=== PATIENT | male | born 1945 | race Caucasian/White ===

== ENCOUNTER 2021-02-18 20:30 | Inpatient (IN) | payer OTHER ==
[2021-02-18] MEDS ORDERED: Dextrose 50% Abboject 50 ML SYRINGE IVP PRN (21:45)
[2021-02-18] MEDS ORDERED: HumaLOG 300 UNITS/3 ML VIAL SC PRN (21:45)
[2021-02-18] MEDS ORDERED: Dextrose 5% in Water 1,000 ML IV PRN ×2 (21:45→23:13)
[2021-02-18 21:55] VITALS: BMI 22.7
[2021-02-18] MEDS ORDERED: Acetaminophen 650 MG Suppository PR PRN (23:03)
[2021-02-18] MEDS ORDERED: Acetaminophen 325 MG TAB PO PRN (23:03)
[2021-02-18] MEDS ORDERED: Ondansetron ODT 4 MG TAB PO PRN (23:03)
[2021-02-18] MEDS ORDERED: Ondansetron PF 4 MG/2 ML Vial IVP PRN (23:03)
[2021-02-18] MEDS ORDERED: Cefepime 2 GM in Sodium Chloride 0.9% 100 ML IVPB SCH (23:06)
[2021-02-18] MEDS ORDERED: Doxycycline 100 MG in Syringe 0 ML IVPB SCH (23:12)
[2021-02-18] MEDS ORDERED: Dextrose 50% Abboject 50 ML SYRINGE SLOW IVP PRN (23:13)
[2021-02-18] MEDS ORDERED: methylPREDNISolone Sod Succ 40 MG VIAL IVP SCH (23:30)
[2021-02-19 00:57] LABS: Anion Gap 14 mmol/L (10-20); BUN (Urea Nitrogen) 20 mg/dL (8.4-25.7); Calc. Creatinine Clearance 71 mL/min (70-130); Calcium 9.2 mg/dL (7.8-10.44); Carbon Dioxide 30 mmol/L (23-31); Chloride 89 mmol/L (98-107); Glucose 143 mg/dL (83-110); Potassium 5.5 mmol/L (3.5-5.1); Sodium 127 mmol/L (136-145)
[2021-02-19 01:03] LABS: Troponin I Less than 0.010 ng/mL (< 0.028)
[2021-02-19 01:20] LABS: Hemoglobin 11.5 g/dL (14.0-18.0); Mean Corpuscular HGB CONC 34.5 g/dL (32.0-36.0); Mean Corpuscular Hemoglobin 32.5 pg (27.0-31.0); Mean Corpuscular Volume 94.3 fL (78.0-98.0); Mean Platelet Volume 7.1 fL (7.4-10.4); Platelet Count 421 thou/uL (130-400); RBC Distribution Width 12.8 % (11.5-14.5); Red Blood Cell (RBC) Count 3.54 mill/uL (4.70-6.10); White Blood Cell (WBC) Count 11.5 thou/uL (4.8-10.8)
[2021-02-19 01:32] LABS: Band 2 % (5-11); Lymphocytes 4 % (21-51); MDiff Complete? YES; Monocytes 6 % (0-10); Neutrophil 88 % (42-75)
[2021-02-19 05:09] LABS: #Lymphocytes 0.4 thou/uL (1.20-3.40); #Monocytes 0.8 thou/uL (0.11-0.59); #Neutrophils 10.3 thou/uL (1.40-6.50); %Eosinophils 0.2 % (0.0-10.0); %Lymphocytes 3.4 % (21.0-51.0); %Neutrophils 89.4 % (42.0-75.0); Hemoglobin 11.7 g/dL (14.0-18.0); Mean Corpuscular HGB CONC 33.9 g/dL (32.0-36.0); Mean Corpuscular Volume 94.4 fL (78.0-98.0); Platelet Count 528 thou/uL (130-400); RBC Distribution Width 12.8 % (11.5-14.5); Red Blood Cell (RBC) Count 3.66 mill/uL (4.70-6.10); White Blood Cell (WBC) Count 11.5 thou/uL (4.8-10.8)
[2021-02-19 05:29] LABS: Anion Gap 15 mmol/L (10-20); BUN (Urea Nitrogen) 18 mg/dL (8.4-25.7); Calc. Creatinine Clearance 72 mL/min (70-130); Calcium 9.7 mg/dL (7.8-10.44); Carbon Dioxide 27 mmol/L (23-31); Chloride 89 mmol/L (98-107); Glucose 210 mg/dL (83-110); Potassium 5.6 mmol/L (3.5-5.1); Sodium 125 mmol/L (136-145)
[2021-02-19] MEDS ORDERED: Furosemide 20 MG/2 ML VIAL SLOW IVP SCH (06:00)
[2021-02-19] MEDS: HumaLOG 300 UNITS/3 ML VIAL SC PRN ×3 (06:10→17:36)
[2021-02-19] MEDS: Mometasone 100 MCG/Formoterol 5 MCG 120 PUFF INHALER INH SCH ×2 (07:16→18:57)
[2021-02-19] MEDS: Apixaban 5 MG TAB PO SCH ×2 (08:22→21:24)
[2021-02-19] MEDS: Polyethylene Glycol 3350 17 GM Packet PO SCH (08:22)
[2021-02-19] MEDS: methylPREDNISolone Sod Succ 40 MG VIAL IVP SCH (08:22)
[2021-02-19] MEDS: Docusate 100 MG CAP PO SCH (08:22)
[2021-02-19] MEDS: Sotalol HCl 80 MG TAB PO SCH ×2 (08:22→21:24)
[2021-02-19] MEDS ORDERED: Senokot 8.6 MG TAB PO PRN (08:59)
[2021-02-19] MEDS ORDERED: Enoxaparin Sodium 40 MG/0.4 ML SYRINGE SC SCH (09:00)
[2021-02-19] MEDS ORDERED: Amlodipine 5 MG TAB PO SCH (09:00)
[2021-02-19] MEDS: Clopidogrel Bisulfate 75 MG TAB PO SCH (09:28)
[2021-02-19 11:42] LABS: SARS-CoV-2 PCR by NAA Not Detected (NotDetected)
[2021-02-19 15:29] LABS: Base Excess 5.4 mEq/L (-2.0 to +3.0); Calcium, Ionized (venous) 1.14 mmol/L (1.16-1.32); Chloride (VBG) 84 mmol/L (98-106); Hemoglobin (Hb) 12.9 g/dL (12.6-17.4); Potassium (VBG) 5.12 mmol/L (3.70-5.30); Sodium 122.7 mmol/L (133-146); pH (venous) 7.31 (7.32-7.43)
[2021-02-19 15:30] LABS: Actual Bicarbonate (HCO3v) 34 mEq/L (22-28)
[2021-02-19 15:53] LABS: Anion Gap 15 mmol/L (10-20); BUN (Urea Nitrogen) 23 mg/dL (8.4-25.7); Calc. Creatinine Clearance 55 mL/min (70-130); Calcium 9.6 mg/dL (7.8-10.44); Carbon Dioxide 31 mmol/L (23-31); Chloride 84 mmol/L (98-107); Glucose 300 mg/dL (83-110); Potassium 5.2 mmol/L (3.5-5.1); Sodium 125 mmol/L (136-145)
[2021-02-19] MEDS ORDERED: Doxycycline 100 MG in Syringe 0 ML IVPB SCH (18:00)
[2021-02-19] MEDS: Cefepime 2 GM in Sodium Chloride 0.9% 100 ML IVPB SCH (18:46)
[2021-02-19] MEDS: Ezetimibe 10 MG TAB PO SCH (21:24)
[2021-02-20 05:43] LABS: #Lymphocytes 0.5 thou/uL (1.20-3.40); #Monocytes 1.3 thou/uL (0.11-0.59); #Neutrophils 7.7 thou/uL (1.40-6.50); %Basophils 0.5 % (0.0-1.0); %Eosinophils 0.2 % (0.0-10.0); %Monocytes 13.6 % (0.0-10.0); %Neutrophils 80.8 % (42.0-75.0); Hemoglobin 11.5 g/dL (14.0-18.0); Mean Platelet Volume 6.9 fL (7.4-10.4); Platelet Count 568 thou/uL (130-400); RBC Distribution Width 12.6 % (11.5-14.5); White Blood Cell (WBC) Count 9.5 thou/uL (4.8-10.8)
[2021-02-20] MEDS: Cefepime 2 GM in Sodium Chloride 0.9% 100 ML IVPB SCH ×2 (06:17→18:13)
[2021-02-20] MEDS: HumaLOG 300 UNITS/3 ML VIAL SC PRN ×3 (06:18→21:14)
[2021-02-20] MEDS: Mometasone 100 MCG/Formoterol 5 MCG 120 PUFF INHALER INH SCH ×2 (06:25→19:23)
[2021-02-20 06:41] LABS: Anion Gap 16 mmol/L (10-20); BUN (Urea Nitrogen) 20 mg/dL (8.4-25.7); Calc. Creatinine Clearance 66 mL/min (70-130); Calcium 9.1 mg/dL (7.8-10.44); Carbon Dioxide 29 mmol/L (23-31); Chloride 88 mmol/L (98-107); Glucose 268 mg/dL (83-110); Potassium 5.5 mmol/L (3.5-5.1); Sodium 127 mmol/L (136-145)
[2021-02-20] MEDS ORDERED: Sodium Chloride 0.9% 1,000 ML IV SCH (08:30)
[2021-02-20 08:58] LABS: Base Excess 6.3 mEq/L (-2.0 to +3.0); Calcium, Ionized (venous) 1.14 mmol/L (1.16-1.32); Chloride (VBG) 89 mmol/L (98-106); Hemoglobin (Hb) 12.4 g/dL (12.6-17.4); Potassium (VBG) 5.43 mmol/L (3.70-5.30); Sodium 124.7 mmol/L (133-146); pH (venous) 7.38 (7.32-7.43)
[2021-02-20 08:59] LABS: Actual Bicarbonate (HCO3v) 33 mEq/L (22-28)
[2021-02-20] MEDS: Amlodipine 5 MG TAB PO SCH (10:34)
[2021-02-20] MEDS: methylPREDNISolone Sod Succ 40 MG VIAL IVP SCH (10:34)
[2021-02-20] MEDS: Apixaban 5 MG TAB PO SCH ×2 (10:35→21:17)
[2021-02-20] MEDS: Clopidogrel Bisulfate 75 MG TAB PO SCH (10:35)
[2021-02-20] MEDS: Sotalol HCl 80 MG TAB PO SCH ×2 (10:35→21:17)
[2021-02-20] MEDS: Docusate 100 MG CAP PO SCH (10:35)
[2021-02-20] MEDS: Polyethylene Glycol 3350 17 GM Packet PO SCH (10:36)
[2021-02-20] MEDS: NPH, Human Insulin Isophane 300 UNIT/3 ML VIAL SC SCH (10:43)
[2021-02-20 11:20] LABS: Magnesium 1.7 mg/dL (1.6-2.6); Phosphorus 4.2 mg/dL (2.3-4.7)
[2021-02-20] MEDS ORDERED: Magnesium 2 GM/50 ML 2 GM in Premix Bag 1 BAG IVPB SCH (14:00)
[2021-02-20] MEDS ORDERED: Sodium Chloride 1 GM TAB PO SCH (21:00)
[2021-02-20] MEDS: Multivit, Therapeutic 1 TAB PO SCH (21:15)
[2021-02-20] MEDS: Ezetimibe 10 MG TAB PO SCH (21:15)
[2021-02-20] MEDS: busPIRone HCl 10 MG TAB PO SCH (21:16)
[2021-02-20] MEDS: Cholecalciferol 1,000 UNITS (25 MCG) TAB PO SCH (21:17)
[2021-02-20] MEDS: Sodium Chloride 1 GM TAB PO SCH (21:29)
[2021-02-21 05:42] LABS: Anion Gap 11 mmol/L (10-20); BUN (Urea Nitrogen) 19 mg/dL (8.4-25.7); Calc. Creatinine Clearance 71 mL/min (70-130); Calcium 8.8 mg/dL (7.8-10.44); Carbon Dioxide 33 mmol/L (23-31); Chloride 88 mmol/L (98-107); Glucose 285 mg/dL (83-110); Magnesium 1.8 mg/dL (1.6-2.6); Potassium 4.7 mmol/L (3.5-5.1); Sodium 127 mmol/L (136-145)
[2021-02-21 05:43] LABS: Phosphorus 3.4 mg/dL (2.3-4.7)
[2021-02-21] MEDS: Cefepime 2 GM in Sodium Chloride 0.9% 100 ML IVPB SCH ×2 (05:45→18:39)
[2021-02-21 05:49] LABS: Hemoglobin 11.5 g/dL (14.0-18.0); Lymphocytes 6 % (21-51); MDiff Complete? YES; Mean Corpuscular HGB CONC 33.8 g/dL (32.0-36.0); Mean Corpuscular Hemoglobin 31.7 pg (27.0-31.0); Mean Corpuscular Volume 93.9 fL (78.0-98.0); Mean Platelet Volume 6.6 fL (7.4-10.4); Monocytes 13 % (0-10); Neutrophil 81 % (42-75); Platelet Count 585 thou/uL (130-400); Platelet Morphology Comment Appears Increased; RBC Distribution Width 12.4 % (11.5-14.5); Red Blood Cell (RBC) Count 3.63 mill/uL (4.70-6.10); White Blood Cell (WBC) Count 7.7 thou/uL (4.8-10.8)
[2021-02-21] MEDS: HumaLOG 300 UNITS/3 ML VIAL SC PRN (06:35)
[2021-02-21] MEDS: Mometasone 100 MCG/Formoterol 5 MCG 120 PUFF INHALER INH SCH ×2 (07:58→18:55)
[2021-02-21] MEDS: Amlodipine 5 MG TAB PO SCH (10:46)
[2021-02-21] MEDS: Apixaban 5 MG TAB PO SCH ×2 (10:47→21:29)
[2021-02-21] MEDS: busPIRone HCl 10 MG TAB PO SCH ×2 (10:47→21:29)
[2021-02-21] MEDS: Docusate 100 MG CAP PO SCH (10:48)
[2021-02-21] MEDS: Cyanocobalamin (Vitamin B-12) 1,000 MCG TAB PO SCH (10:48)
[2021-02-21] MEDS: Folic Acid 1 MG TAB PO SCH (10:48)
[2021-02-21] MEDS: Clopidogrel Bisulfate 75 MG TAB PO SCH (10:50)
[2021-02-21] MEDS: Sotalol HCl 80 MG TAB PO SCH ×2 (10:50→21:27)
[2021-02-21] MEDS: Sodium Chloride 1 GM TAB PO SCH ×3 (10:51→21:28)
[2021-02-21] MEDS: Polyethylene Glycol 3350 17 GM Packet PO SCH ×2 (10:51→21:31)
[2021-02-21] MEDS ORDERED: NPH, Human Insulin Isophane 300 UNIT/3 ML VIAL SC SCH (17:00)
[2021-02-21] MEDS: NPH, Human Insulin Isophane 300 UNIT/3 ML VIAL SC SCH (17:43)
[2021-02-21] MEDS: Senokot S 8.6-50 MG TAB PO SCH (21:27)
[2021-02-21] MEDS: Ezetimibe 10 MG TAB PO SCH (21:28)
[2021-02-21] MEDS: Cholecalciferol 1,000 UNITS (25 MCG) TAB PO SCH (21:29)
[2021-02-21] MEDS: Multivit, Therapeutic 1 TAB PO SCH (21:29)
[2021-02-21 23:13] LABS: Mycoplasma pneumoniae IgG AB 444 U/mL (0-99); Mycoplasma pneumoniae IgM AB Less than 770 U/mL (0-769)
[2021-02-21 23:37] LABS: L.pneumophilia Abs <0.91 OD ratio (0.00-0.90)
[2021-02-22 05:48] LABS: Anion Gap 11 mmol/L (10-20); BUN (Urea Nitrogen) 16 mg/dL (8.4-25.7); Calc. Creatinine Clearance 69 mL/min (70-130); Calcium 8.9 mg/dL (7.8-10.44); Carbon Dioxide 33 mmol/L (23-31); Chloride 91 mmol/L (98-107); Glucose 95 mg/dL (83-110); Potassium 4.1 mmol/L (3.5-5.1); Sodium 131 mmol/L (136-145)
[2021-02-22] MEDS: Cefepime 2 GM in Sodium Chloride 0.9% 100 ML IVPB SCH ×2 (05:53→18:46)
[2021-02-22 06:23] LABS: Eosinophils 1 % (0-10); Hemoglobin 12.6 g/dL (14.0-18.0); Lymphocytes 10 % (21-51); MDiff Complete? YES; Mean Corpuscular HGB CONC 32.9 g/dL (32.0-36.0); Mean Corpuscular Hemoglobin 31.2 pg (27.0-31.0); Mean Corpuscular Volume 94.9 fL (78.0-98.0); Mean Platelet Volume 6.6 fL (7.4-10.4); Monocytes 26 % (0-10); Neutrophil 63 % (42-75); Platelet Count 632 thou/uL (130-400); Platelet Morphology Comment Appears Increased; RBC Distribution Width 12.7 % (11.5-14.5); RBC Morphology Normal; Red Blood Cell (RBC) Count 4.03 mill/uL (4.70-6.10); White Blood Cell (WBC) Count 8.4 thou/uL (4.8-10.8)
[2021-02-22] MEDS ORDERED: NPH, Human Insulin Isophane 300 UNIT/3 ML VIAL SC SCH ×2 (07:00→09:00)
[2021-02-22] MEDS: Mometasone 100 MCG/Formoterol 5 MCG 120 PUFF INHALER INH SCH ×2 (07:24→18:39)
[2021-02-22] MEDS: Senokot S 8.6-50 MG TAB PO SCH ×2 (09:19→20:35)
[2021-02-22] MEDS: Clopidogrel Bisulfate 75 MG TAB PO SCH (09:19)
[2021-02-22] MEDS: Folic Acid 1 MG TAB PO SCH (09:20)
[2021-02-22] MEDS: predniSONE 20 MG TAB PO SCH (09:20)
[2021-02-22] MEDS: Sotalol HCl 80 MG TAB PO SCH ×2 (09:20→20:37)
[2021-02-22] MEDS: Sodium Chloride 1 GM TAB PO SCH ×3 (09:20→20:37)
[2021-02-22] MEDS: busPIRone HCl 10 MG TAB PO SCH ×2 (09:20→20:36)
[2021-02-22] MEDS: Apixaban 5 MG TAB PO SCH ×2 (09:20→20:36)
[2021-02-22] MEDS: Amlodipine 5 MG TAB PO SCH (09:20)
[2021-02-22] MEDS: Cyanocobalamin (Vitamin B-12) 1,000 MCG TAB PO SCH (09:20)
[2021-02-22] MEDS: Polyethylene Glycol 3350 17 GM Packet PO SCH ×2 (09:24→20:35)
[2021-02-22] MEDS: HumaLOG 300 UNITS/3 ML VIAL SC PRN (17:24)
[2021-02-22] MEDS: Calcium Carbonate 600 MG + Vit D TAB PO SCH (17:24)
[2021-02-22] MEDS: Ezetimibe 10 MG TAB PO SCH (20:36)
[2021-02-22] MEDS: Cholecalciferol 1,000 UNITS (25 MCG) TAB PO SCH (20:36)
[2021-02-23 05:27] LABS: Anion Gap 11 mmol/L (10-20); BUN (Urea Nitrogen) 19 mg/dL (8.4-25.7); Calc. Creatinine Clearance 82 mL/min (70-130); Calcium 9.2 mg/dL (7.8-10.44); Carbon Dioxide 34 mmol/L (23-31); Chloride 93 mmol/L (98-107); Glucose 187 mg/dL (83-110); Potassium 4.5 mmol/L (3.5-5.1); Sodium 133 mmol/L (136-145)
[2021-02-23] MEDS: Mometasone 100 MCG/Formoterol 5 MCG 120 PUFF INHALER INH SCH ×2 (07:25→20:38)
[2021-02-23] MEDS: HumaLOG 300 UNITS/3 ML VIAL SC PRN ×3 (07:32→21:16)
[2021-02-23] MEDS: Cefepime 2 GM in Sodium Chloride 0.9% 100 ML IVPB SCH ×2 (07:33→18:26)
[2021-02-23] MEDS: Folic Acid 1 MG TAB PO SCH (08:49)
[2021-02-23] MEDS: Amlodipine 5 MG TAB PO SCH (08:49)
[2021-02-23] MEDS: Calcium Carbonate 600 MG + Vit D TAB PO SCH ×2 (08:49→17:09)
[2021-02-23] MEDS: predniSONE 20 MG TAB PO SCH (08:49)
[2021-02-23] MEDS: Senokot S 8.6-50 MG TAB PO SCH ×2 (08:49→21:05)
[2021-02-23] MEDS: Multivit, Therapeutic 1 TAB PO SCH (08:49)
[2021-02-23] MEDS: Apixaban 5 MG TAB PO SCH ×2 (08:49→21:03)
[2021-02-23] MEDS: Cyanocobalamin (Vitamin B-12) 1,000 MCG TAB PO SCH (08:49)
[2021-02-23] MEDS: Sodium Chloride 1 GM TAB PO SCH ×3 (08:49→21:12)
[2021-02-23] MEDS: Clopidogrel Bisulfate 75 MG TAB PO SCH (08:49)
[2021-02-23] MEDS: Sotalol HCl 80 MG TAB PO SCH ×2 (08:49→21:03)
[2021-02-23] MEDS: busPIRone HCl 10 MG TAB PO SCH ×2 (08:49→21:02)
[2021-02-23] MEDS: Polyethylene Glycol 3350 17 GM Packet PO SCH ×2 (08:50→21:04)
[2021-02-23] MEDS: Cholecalciferol 1,000 UNITS (25 MCG) TAB PO SCH (21:02)
[2021-02-23] MEDS: Ezetimibe 10 MG TAB PO SCH (21:02)
[2021-02-24] MEDS: HumaLOG 300 UNITS/3 ML VIAL SC PRN ×3 (06:01→21:41)
[2021-02-24] MEDS: Mometasone 100 MCG/Formoterol 5 MCG 120 PUFF INHALER INH SCH ×2 (06:31→18:57)
[2021-02-24] MEDS: Cefepime 2 GM in Sodium Chloride 0.9% 100 ML IVPB SCH ×2 (07:27→18:28)
[2021-02-24] MEDS: Calcium Carbonate 600 MG + Vit D TAB PO SCH ×2 (10:07→16:30)
[2021-02-24] MEDS: Multivit, Therapeutic 1 TAB PO SCH (10:07)
[2021-02-24] MEDS: Senokot S 8.6-50 MG TAB PO SCH ×2 (10:07→21:46)
[2021-02-24] MEDS: Sotalol HCl 80 MG TAB PO SCH ×2 (10:07→21:39)
[2021-02-24] MEDS: Cyanocobalamin (Vitamin B-12) 1,000 MCG TAB PO SCH (10:08)
[2021-02-24] MEDS: Clopidogrel Bisulfate 75 MG TAB PO SCH (10:08)
[2021-02-24] MEDS: busPIRone HCl 10 MG TAB PO SCH ×2 (10:09→21:38)
[2021-02-24] MEDS: Apixaban 5 MG TAB PO SCH ×2 (10:09→21:39)
[2021-02-24] MEDS: Amlodipine 5 MG TAB PO SCH (10:09)
[2021-02-24] MEDS: predniSONE 20 MG TAB PO SCH (10:10)
[2021-02-24] MEDS: Polyethylene Glycol 3350 17 GM Packet PO SCH ×2 (10:10→21:46)
[2021-02-24] MEDS: Sodium Chloride 1 GM TAB PO SCH ×3 (10:23→21:38)
[2021-02-24] MEDS: Folic Acid 1 MG TAB PO SCH (10:23)
[2021-02-24 10:45] LABS: Anion Gap 10 mmol/L (10-20); BUN (Urea Nitrogen) 20 mg/dL (8.4-25.7); Calc. Creatinine Clearance 82 mL/min (70-130); Calcium 9.3 mg/dL (7.8-10.44); Carbon Dioxide 34 mmol/L (23-31); Chloride 93 mmol/L (98-107); Glucose 135 mg/dL (83-110); Potassium 4.3 mmol/L (3.5-5.1); Sodium 133 mmol/L (136-145)
[2021-02-24] MEDS: Ezetimibe 10 MG TAB PO SCH (21:39)
[2021-02-24] MEDS: Atorvastatin Calcium 20 MG TAB PO SCH (21:39)
[2021-02-24] MEDS: Cholecalciferol 1,000 UNITS (25 MCG) TAB PO SCH (21:39)
[2021-02-25 05:24] LABS: Anion Gap 9 mmol/L (10-20); BUN (Urea Nitrogen) 18 mg/dL (8.4-25.7); Calc. Creatinine Clearance 82 mL/min (70-130); Calcium 9.2 mg/dL (7.8-10.44); Carbon Dioxide 33 mmol/L (23-31); Chloride 95 mmol/L (98-107); Glucose 203 mg/dL (83-110); Potassium 4.5 mmol/L (3.5-5.1); Sodium 132 mmol/L (136-145)
[2021-02-25] MEDS: HumaLOG 300 UNITS/3 ML VIAL SC PRN ×3 (06:25→18:34)
[2021-02-25] MEDS: Cefepime 2 GM in Sodium Chloride 0.9% 100 ML IVPB SCH (06:27)
[2021-02-25] MEDS: Mometasone 100 MCG/Formoterol 5 MCG 120 PUFF INHALER INH SCH ×2 (06:29→19:28)
[2021-02-25] MEDS: Senokot S 8.6-50 MG TAB PO SCH ×2 (09:21→21:32)
[2021-02-25] MEDS: Calcium Carbonate 600 MG + Vit D TAB PO SCH ×2 (09:22→16:08)
[2021-02-25] MEDS: busPIRone HCl 10 MG TAB PO SCH ×2 (09:22→20:40)
[2021-02-25] MEDS: Multivit, Therapeutic 1 TAB PO SCH (09:22)
[2021-02-25] MEDS: Amlodipine 5 MG TAB PO SCH (09:22)
[2021-02-25] MEDS: predniSONE 20 MG TAB PO SCH (09:23)
[2021-02-25] MEDS: Folic Acid 1 MG TAB PO SCH (09:23)
[2021-02-25] MEDS: Clopidogrel Bisulfate 75 MG TAB PO SCH (09:23)
[2021-02-25] MEDS: Apixaban 5 MG TAB PO SCH ×2 (09:23→20:41)
[2021-02-25] MEDS: Sotalol HCl 80 MG TAB PO SCH ×2 (09:23→20:39)
[2021-02-25] MEDS: Polyethylene Glycol 3350 17 GM Packet PO SCH ×2 (09:24→21:32)
[2021-02-25] MEDS: Cyanocobalamin (Vitamin B-12) 1,000 MCG TAB PO SCH (09:28)
[2021-02-25] MEDS: Sodium Chloride 1 GM TAB PO SCH ×2 (09:39→21:32)
[2021-02-25] MEDS: Atorvastatin Calcium 20 MG TAB PO SCH (20:40)
[2021-02-25] MEDS: Cholecalciferol 1,000 UNITS (25 MCG) TAB PO SCH (20:40)
[2021-02-25] MEDS: Ezetimibe 10 MG TAB PO SCH (20:40)
[2021-02-26] MEDS: Mometasone 100 MCG/Formoterol 5 MCG 120 PUFF INHALER INH SCH (07:08)
[2021-02-26] MEDS ORDERED: predniSONE 20 MG TAB PO SCH (08:00)
[2021-02-26 08:11] LABS: Anion Gap 8 mmol/L (10-20); BUN (Urea Nitrogen) 14 mg/dL (8.4-25.7); Calc. Creatinine Clearance 88 mL/min (70-130); Calcium 9.3 mg/dL (7.8-10.44); Carbon Dioxide 35 mmol/L (23-31); Chloride 92 mmol/L (98-107); Glucose 157 mg/dL (83-110); Potassium 4.4 mmol/L (3.5-5.1); Sodium 131 mmol/L (136-145)
[2021-02-26] MEDS: Polyethylene Glycol 3350 17 GM Packet PO SCH (08:34)
[2021-02-26] MEDS: Sodium Chloride 1 GM TAB PO SCH (08:34)
[2021-02-26] MEDS: Cyanocobalamin (Vitamin B-12) 1,000 MCG TAB PO SCH (08:34)
[2021-02-26] MEDS: Senokot S 8.6-50 MG TAB PO SCH (08:34)
[2021-02-26] MEDS: busPIRone HCl 10 MG TAB PO SCH (08:35)
[2021-02-26] MEDS: Folic Acid 1 MG TAB PO SCH (08:35)
[2021-02-26] MEDS: Multivit, Therapeutic 1 TAB PO SCH (08:36)
[2021-02-26] MEDS: Sotalol HCl 80 MG TAB PO SCH (08:36)
[2021-02-26] MEDS: Clopidogrel Bisulfate 75 MG TAB PO SCH (08:36)
[2021-02-26] MEDS: Calcium Carbonate 600 MG + Vit D TAB PO SCH ×2 (08:36→16:48)
[2021-02-26] MEDS: Amlodipine 5 MG TAB PO SCH (08:36)
[2021-02-26] MEDS: Apixaban 5 MG TAB PO SCH (08:36)
[2021-02-26] MEDS ORDERED: Azithromycin 250 MG TAB PO SCH (09:00)
[2021-02-26] MEDS: HumaLOG 300 UNITS/3 ML VIAL SC PRN ×2 (12:05→16:48)
[2021-02-26 15:06] LABS: SARS-CoV-2 NAA Rapid Test Not Detected (NotDetected)
[2021-02-26] MEDS ORDERED: Sodium Chloride 1 GM TAB PO SCH ×2 (15:45→21:00)
[2021-02-26 16:19] VITALS: BP 137/81; TEMP 98.2
== END 2021-02-26 17:15 | DRG 193 ==
LOC: 2NO 21:23
PROVIDERS: ADMIT Internal Medicine; ATTEND Internal Medicine
DX: J18.9 Pneumonia, unspecified organism (principal); J96.21 Acute and chronic respiratory failure with hypoxia; J96.22 Acute and chronic respiratory failure with hypercapnia; J44.1 Chronic obstructive pulmonary disease with (acute) exacerbation; J44.0 Chronic obstructive pulmonary disease with (acute) lower respiratory infection; E44.0 Moderate protein-calorie malnutrition; E22.2 Syndrome of inappropriate secretion of antidiuretic hormone; Z66 Do not resuscitate; Z20.822 Contact with and (suspected) exposure to COVID-19; E78.5 Hyperlipidemia, unspecified; I25.10 Atherosclerotic heart disease of native coronary artery without angina pectoris; I48.0 Paroxysmal atrial fibrillation; D53.9 Nutritional anemia, unspecified; E11.9 Type 2 diabetes mellitus without complications; I11.0 Hypertensive heart disease with heart failure; E87.5 Hyperkalemia; Z88.0 Allergy status to penicillin; Z99.81 Dependence on supplemental oxygen; Z86.74 Personal history of sudden cardiac arrest; I25.2 Old myocardial infarction; Z68.22 Body mass index [BMI] 22.0-22.9, adult; Z79.51 Long term (current) use of inhaled steroids; Z79.899 Other long term (current) drug therapy; Z79.01 Long term (current) use of anticoagulants; E83.42 Hypomagnesemia
CPT/HCPCS: 36415; 36416; 71045; 74230; 80048; 82805; 83735; 83880; 83930; 83935; 84100; 84145; 84300; 84443; 84484; 85025; 86713; 87040; 87633; 94640; J0692; J1815; J1940; J2920; J3475; J3490; J7512; J7620; U0002; U0003; U0005

== ENCOUNTER 2021-03-24 09:31 | Inpatient (IN) | payer OTHER, MEDICARE ==
[2021-03-24 12:31] VITALS: BMI 24.3
[2021-03-24] MEDS ORDERED: Dextrose 50% Abboject 50 ML SYRINGE SLOW IVP PRN (12:52)
[2021-03-24] MEDS ORDERED: Dextrose 5% in Water 1,000 ML IV PRN (12:52)
[2021-03-24] MEDS ORDERED: Ondansetron PF 4 MG/2 ML Vial IVP PRN (12:53)
[2021-03-24] MEDS ORDERED: Promethazine HCl 25 MG/ML VIAL IM PRN (12:53)
[2021-03-24] MEDS ORDERED: Lorazepam 2 MG/ML VIAL SLOW IVP PRN (12:54)
[2021-03-24] MEDS ORDERED: hydrALAZINE 20 MG/ML VIAL SLOW IVP PRN (12:54)
[2021-03-24] MEDS ORDERED: Milk Of Magnesia 30 ML UDCUP PO PRN (12:56)
[2021-03-24] MEDS ORDERED: Benzonatate 100 MG CAP PO PRN (12:56)
[2021-03-24] MEDS ORDERED: Morphine 4 MG/ML VIAL SLOW IVP PRN (12:59)
[2021-03-24] MEDS ORDERED: Sodium Chloride 0.9% 1,000 ML IV SCH ×4 (13:15→15:09)
[2021-03-24 13:35] LABS: Hemoglobin 11.8 g/dL (14.0-18.0); Mean Corpuscular HGB CONC 33.8 g/dL (32.0-36.0); Mean Corpuscular Volume 94.6 fL (78.0-98.0); Mean Platelet Volume 6.6 fL (7.4-10.4); Platelet Count 373 thou/uL (130-400); RBC Distribution Width 13.5 % (11.5-14.5); Red Blood Cell (RBC) Count 3.67 mill/uL (4.70-6.10); White Blood Cell (WBC) Count 8.8 thou/uL (4.8-10.8)
[2021-03-24 13:45] LABS: INR-International Normal Ratio 1.4; PTT 41.8 sec (22.9-36.1); Prothrombin Time 17.5 sec (12.0-14.7)
[2021-03-24 13:51] LABS: Band 1 % (5-11); Eosinophils 1 % (0-10); Lymphocytes 5 % (21-51); MDiff Complete? YES; Monocytes 10 % (0-10); Myelocyte 1 % (0-0); Neutrophil 80 % (42-75); Ovalocytes SLIGHT = 2-5 cells (100X) (0-1/hpf); Platelet Morphology Comment Appears Adequate; Polychromasia SLIGHT = 2-3 cells (100X) (0-2/hpf); Reactive Lymphocytes 2 % (0-10)
[2021-03-24 13:58] LABS: Anion Gap 10 mmol/L (10-20); BUN (Urea Nitrogen) 11 mg/dL (8.4-25.7); Calc. Creatinine Clearance 86 mL/min (70-130); Calcium 9.2 mg/dL (7.8-10.44); Carbon Dioxide 32 mmol/L (23-31); Chloride 92 mmol/L (98-107); Glucose 177 mg/dL (83-110); Magnesium 1.8 mg/dL (1.6-2.6); Phosphorus 2.8 mg/dL (2.3-4.7); Potassium 5.7 mmol/L (3.5-5.1); Sodium 128 mmol/L (136-145)
[2021-03-24] MEDS ORDERED: Dextrose 50% Abboject 50 ML SYRINGE SLOW IVP STA (14:41)
[2021-03-24] MEDS ORDERED: Insulin Regular 300 UNITS/3 ML VIAL IVP STA (14:42)
[2021-03-24] MEDS ORDERED: busPIRone HCl 10 MG TAB PO STA (15:28)
[2021-03-24] MEDS: Mometasone 100 MCG/PUFF (1 INHALER) INH SCH (19:15)
[2021-03-24 20:56] LABS: Anion Gap 12 mmol/L (10-20); BUN (Urea Nitrogen) 10 mg/dL (8.4-25.7); Calc. Creatinine Clearance 88 mL/min (70-130); Calcium 8.7 mg/dL (7.8-10.44); Carbon Dioxide 29 mmol/L (23-31); Chloride 92 mmol/L (98-107); Glucose 205 mg/dL (83-110); Magnesium 1.6 mg/dL (1.6-2.6); Phosphorus 2.8 mg/dL (2.3-4.7); Potassium 4.3 mmol/L (3.5-5.1); Sodium 129 mmol/L (136-145)
[2021-03-24] MEDS ORDERED: busPIRone HCl 5 MG TAB PO SCH (21:00)
[2021-03-24] MEDS ORDERED: Sotalol HCl 80 MG TAB PO SCH (21:00)
[2021-03-24] MEDS: Magnesium Oxide 400 MG TAB PO SCH (21:51)
[2021-03-24] MEDS: Sotalol HCl 80 MG TAB PO SCH (21:51)
[2021-03-24] MEDS: Ezetimibe 10 MG TAB PO SCH (21:52)
[2021-03-24] MEDS: Amlodipine 5 MG TAB PO SCH (21:52)
[2021-03-24] MEDS: busPIRone HCl 5 MG TAB PO SCH (21:52)
[2021-03-24] MEDS: Famotidine/PF 20 mg/2ml Vial SLOW IVP SCH (21:52)
[2021-03-24] MEDS: Atorvastatin Calcium 20 MG TAB PO SCH (21:53)
[2021-03-25 06:14] LABS: Anion Gap 11 mmol/L (10-20); BUN (Urea Nitrogen) 8 mg/dL (8.4-25.7); Calc. Creatinine Clearance 90 mL/min (70-130); Calcium 8.6 mg/dL (7.8-10.44); Carbon Dioxide 34 mmol/L (23-31); Chloride 93 mmol/L (98-107); Glucose 154 mg/dL (83-110); Magnesium 1.5 mg/dL (1.6-2.6); Phosphorus 2.8 mg/dL (2.3-4.7); Potassium 4.6 mmol/L (3.5-5.1); Sodium 133 mmol/L (136-145)
[2021-03-25 06:20] LABS: Eosinophils 4 % (0-10); Hemoglobin 10.8 g/dL (14.0-18.0); Lymphocytes 7 % (21-51); MDiff Complete? YES; Mean Corpuscular HGB CONC 33.6 g/dL (32.0-36.0); Mean Corpuscular Hemoglobin 31.9 pg (27.0-31.0); Mean Corpuscular Volume 94.9 fL (78.0-98.0); Mean Platelet Volume 6.8 fL (7.4-10.4); Monocytes 23 % (0-10); Neutrophil 65 % (42-75); Platelet Count 340 thou/uL (130-400); Platelet Morphology Comment Appears Adequate; RBC Distribution Width 13.7 % (11.5-14.5); Reactive Lymphocytes 1 % (0-10); White Blood Cell (WBC) Count 9.1 thou/uL (4.8-10.8)
[2021-03-25] MEDS ORDERED: Magnesium Sulfate 4 GM in Sodium Chloride 0.9% 250 ML 250 ML IV SCH (06:45)
[2021-03-25] MEDS: Mometasone 100 MCG/PUFF (1 INHALER) INH SCH ×2 (07:37→19:26)
[2021-03-25] MEDS: Polyethylene Glycol 3350 17 GM Packet PO SCH (07:58)
[2021-03-25] MEDS: Amlodipine 5 MG TAB PO SCH ×2 (07:58→20:23)
[2021-03-25] MEDS: Magnesium Oxide 400 MG TAB PO SCH ×2 (07:58→20:23)
[2021-03-25] MEDS: Famotidine/PF 20 mg/2ml Vial SLOW IVP SCH ×2 (07:59→20:23)
[2021-03-25] MEDS: Docusate 100 MG CAP PO SCH (07:59)
[2021-03-25] MEDS: busPIRone HCl 5 MG TAB PO SCH ×3 (07:59→20:19)
[2021-03-25] MEDS: Sotalol HCl 80 MG TAB PO SCH ×2 (07:59→20:19)
[2021-03-25] MEDS: predniSONE 20 MG TAB PO SCH (08:00)
[2021-03-25] MEDS ORDERED: Clindamycin/D5W 900 MG in Premix Bag 1 BAG IVPB SCH (12:30)
[2021-03-25] MEDS: HumaLOG 300 UNITS/3 ML VIAL SC PRN ×3 (13:17→20:33)
[2021-03-25] MEDS: Atorvastatin Calcium 20 MG TAB PO SCH (20:23)
[2021-03-25] MEDS: Ezetimibe 10 MG TAB PO SCH (20:23)
[2021-03-26 06:12] LABS: Band 1 % (5-11); Hemoglobin 10.5 g/dL (14.0-18.0); Lymphocytes 8 % (21-51); MDiff Complete? YES; Mean Corpuscular HGB CONC 33.6 g/dL (32.0-36.0); Mean Platelet Volume 6.8 fL (7.4-10.4); Metamyelocyte 1 % (0-0); Monocytes 15 % (0-10); Neutrophil 73 % (42-75); Platelet Count 334 thou/uL (130-400); Platelet Morphology Comment Appears Adequate; RBC Distribution Width 13.6 % (11.5-14.5); Reactive Lymphocytes 2 % (0-10); Red Blood Cell (RBC) Count 3.29 mill/uL (4.70-6.10); White Blood Cell (WBC) Count 9.7 thou/uL (4.8-10.8)
[2021-03-26 06:21] LABS: Anion Gap 9 mmol/L (10-20); BUN (Urea Nitrogen) 14 mg/dL (8.4-25.7); Calc. Creatinine Clearance 76 mL/min (70-130); Calcium 8.7 mg/dL (7.8-10.44); Carbon Dioxide 35 mmol/L (23-31); Chloride 93 mmol/L (98-107); Glucose 200 mg/dL (83-110); Phosphorus 2.7 mg/dL (2.3-4.7); Potassium 4.4 mmol/L (3.5-5.1); Sodium 133 mmol/L (136-145)
[2021-03-26] MEDS: Mometasone 100 MCG/PUFF (1 INHALER) INH SCH ×2 (07:59→18:33)
[2021-03-26] MEDS ORDERED: traMADol HCl 50 MG TAB PO PRN (08:10)
[2021-03-26] MEDS ORDERED: Ibuprofen 600 MG TAB PO PRN (08:11)
[2021-03-26] MEDS ORDERED: PHOS-NAK 1 PKT PACK PO SCH ×2 (08:15→14:00)
[2021-03-26] MEDS: Famotidine/PF 20 mg/2ml Vial SLOW IVP SCH ×2 (08:24→21:38)
[2021-03-26] MEDS: Polyethylene Glycol 3350 17 GM Packet PO SCH (08:29)
[2021-03-26] MEDS ORDERED: Ibuprofen 100 MG/5 ML UDCUP PO PRN (09:02)
[2021-03-26] MEDS: busPIRone HCl 5 MG TAB PO SCH ×3 (09:03→21:36)
[2021-03-26] MEDS: Sotalol HCl 80 MG TAB PO SCH ×2 (09:03→21:35)
[2021-03-26] MEDS: predniSONE 20 MG TAB PO SCH (09:04)
[2021-03-26] MEDS: Amlodipine 5 MG TAB PO SCH ×2 (09:04→21:36)
[2021-03-26] MEDS: Magnesium Oxide 400 MG TAB PO SCH ×2 (09:04→21:36)
[2021-03-26] MEDS: Docusate 100 MG CAP PO SCH (09:05)
[2021-03-26] MEDS: Senokot S 8.6-50 MG TAB PO SCH ×2 (09:06→21:36)
[2021-03-26] MEDS: Acetaminophen 500 MG TAB PO SCH ×3 (10:20→21:37)
[2021-03-26] MEDS ORDERED: Clindamycin/D5W 900 mg/50 ml Premix Bag ONE (11:09)
[2021-03-26] MEDS ORDERED: Fentanyl 100 MCG/2 ML VIAL ONE (12:31)
[2021-03-26] MEDS ORDERED: HYDROmorphone 2 MG/ML VIAL ONE (12:31)
[2021-03-26] MEDS ORDERED: Ketamine 50 MG/ML (10ML VIAL) ONE (12:31)
[2021-03-26] MEDS ORDERED: Succinylcholine 200 MG/10 ml SYRINGE FS ONE (12:55)
[2021-03-26] MEDS ORDERED: Phenylephrine 10 MG/ML VIAL ONE (12:55)
[2021-03-26] MEDS ORDERED: Dexamethasone 20 MG/5 ML VIAL ONE (12:55)
[2021-03-26] MEDS ORDERED: Lidocaine 1% PF 5 ML VIAL ONE (12:55)
[2021-03-26] MEDS ORDERED: PROPOFOL 200 MG/20 ML VIAL ONE (12:55)
[2021-03-26] MEDS ORDERED: ePHEDrine 50 MG/ML VIAL ONE ×2 (12:55)
[2021-03-26] MEDS ORDERED: Ondansetron PF 4 MG/2 ML Vial ONE (12:55)
[2021-03-26] MEDS ORDERED: ePHEDrine Sulfate 50 MG/10 ML VIAL ONE ×2 (13:34→13:53)
[2021-03-26] MEDS ORDERED: Ondansetron HCl/PF 4 MG/2 ML Vial IVP PRN (14:17)
[2021-03-26] MEDS ORDERED: Promethazine HCl 25 MG/ML VIAL IM PRN (14:17)
[2021-03-26] MEDS ORDERED: Meperidine HCl/PF 25 MG/ML VIAL SLOW IVP PRN (14:17)
[2021-03-26] MEDS ORDERED: Promethazine HCl 25 MG/ML VIAL IVPB PRN (14:17)
[2021-03-26] MEDS ORDERED: HYDROmorphone 2 MG/ML VIAL SLOW IVP PRN (14:17)
[2021-03-26] MEDS: Ezetimibe 10 MG TAB PO SCH (21:36)
[2021-03-26] MEDS: Atorvastatin Calcium 20 MG TAB PO SCH (21:36)
[2021-03-26] MEDS: Clindamycin/D5W 600 MG in Premix Bag 1 BAG IVPB SCH (21:37)
[2021-03-26] MEDS: Insulin Regular 300 UNITS/3 ML VIAL SC PRN (21:40)
[2021-03-27] MEDS: Acetaminophen 500 MG TAB PO SCH ×4 (05:06→21:37)
[2021-03-27] MEDS: Clindamycin/D5W 600 MG in Premix Bag 1 BAG IVPB SCH (05:07)
[2021-03-27] MEDS: Insulin Regular 300 UNITS/3 ML VIAL SC PRN ×4 (05:35→21:37)
[2021-03-27] MEDS: Mometasone 100 MCG/PUFF (1 INHALER) INH SCH ×2 (06:44→18:50)
[2021-03-27 07:17] LABS: #Lymphocytes 0.6 thou/uL (1.20-3.40); #Monocytes 1.1 thou/uL (0.11-0.59); #Neutrophils 7.4 thou/uL (1.40-6.50); %Basophils 0.3 % (0.0-1.0); %Eosinophils 0.2 % (0.0-10.0); %Lymphocytes 6.1 % (21.0-51.0); %Monocytes 12.1 % (0.0-10.0); %Neutrophils 81.4 % (42.0-75.0); Hemoglobin 10.3 g/dL (14.0-18.0); Mean Corpuscular HGB CONC 34.1 g/dL (32.0-36.0); Mean Corpuscular Hemoglobin 32.2 pg (27.0-31.0); Mean Corpuscular Volume 94.4 fL (78.0-98.0); Mean Platelet Volume 7.2 fL (7.4-10.4); Platelet Count 340 thou/uL (130-400); RBC Distribution Width 13.4 % (11.5-14.5); White Blood Cell (WBC) Count 9.1 thou/uL (4.8-10.8)
[2021-03-27 07:22] LABS: Anion Gap 11 mmol/L (10-20); BUN (Urea Nitrogen) 12 mg/dL (8.4-25.7); Calc. Creatinine Clearance 85 mL/min (70-130); Carbon Dioxide 33 mmol/L (23-31); Chloride 93 mmol/L (98-107); Glucose 263 mg/dL (83-110); Magnesium 1.7 mg/dL (1.6-2.6); Phosphorus 3.4 mg/dL (2.3-4.7); Potassium 4.7 mmol/L (3.5-5.1); Sodium 132 mmol/L (136-145)
[2021-03-27] MEDS ORDERED: Magnesium 2 GM/50 ML 2 GM in Premix Bag 1 BAG IVPB SCH (08:00)
[2021-03-27] MEDS ORDERED: PHOS-NAK 1 PKT PACK PO SCH (08:00)
[2021-03-27] MEDS: predniSONE 20 MG TAB PO SCH (08:22)
[2021-03-27] MEDS: traMADol HCl 50 MG TAB PO PRN (08:24)
[2021-03-27] MEDS: Magnesium Oxide 400 MG TAB PO SCH ×2 (08:24→21:37)
[2021-03-27] MEDS: Sotalol HCl 80 MG TAB PO SCH ×2 (08:25→21:35)
[2021-03-27] MEDS: Amlodipine 5 MG TAB PO SCH ×2 (08:26→21:36)
[2021-03-27] MEDS: Senokot S 8.6-50 MG TAB PO SCH ×2 (08:27→21:36)
[2021-03-27] MEDS: busPIRone HCl 5 MG TAB PO SCH ×3 (08:28→21:36)
[2021-03-27] MEDS: Clopidogrel Bisulfate 75 MG TAB PO SCH (10:33)
[2021-03-27] MEDS: ALPRAZolam 0.25 MG TAB PO SCH ×4 (10:33→21:37)
[2021-03-27] MEDS: Polyethylene Glycol 3350 17 GM Packet PO SCH (10:34)
[2021-03-27] MEDS: Docusate 100 MG CAP PO SCH (10:39)
[2021-03-27] MEDS: Atorvastatin Calcium 20 MG TAB PO SCH (21:37)
[2021-03-27] MEDS: Ezetimibe 10 MG TAB PO SCH (21:37)
[2021-03-28] MEDS: Acetaminophen 500 MG TAB PO SCH ×3 (03:46→18:17)
[2021-03-28] MEDS: Insulin Regular 300 UNITS/3 ML VIAL SC PRN ×2 (05:53→18:16)
[2021-03-28 07:55] LABS: Hemoglobin 10.1 g/dL (14.0-18.0); Mean Corpuscular HGB CONC 32.8 g/dL (32.0-36.0); Mean Corpuscular Hemoglobin 31.4 pg (27.0-31.0); Mean Corpuscular Volume 95.7 fL (78.0-98.0); Mean Platelet Volume 7.2 fL (7.4-10.4); Platelet Count 375 thou/uL (130-400); RBC Distribution Width 13.8 % (11.5-14.5); White Blood Cell (WBC) Count 10.9 thou/uL (4.8-10.8)
[2021-03-28] MEDS: Mometasone 100 MCG/PUFF (1 INHALER) INH SCH ×2 (08:29→18:17)
[2021-03-28 08:38] LABS: Anion Gap 10 mmol/L (10-20); Calc. Creatinine Clearance 87 mL/min (70-130); Calcium 8.8 mg/dL (7.8-10.44); Carbon Dioxide 34 mmol/L (23-31); Chloride 91 mmol/L (98-107); Glucose 165 mg/dL (83-110); Phosphorus 2.9 mg/dL (2.3-4.7); Potassium 4.2 mmol/L (3.5-5.1); Sodium 131 mmol/L (136-145)
[2021-03-28 08:39] LABS: BUN (Urea Nitrogen) 17 mg/dL (8.4-25.7); Magnesium 1.8 mg/dL (1.6-2.6)
[2021-03-28] MEDS: Sotalol HCl 80 MG TAB PO SCH (08:55)
[2021-03-28] MEDS: Senokot S 8.6-50 MG TAB PO SCH (08:55)
[2021-03-28] MEDS: Amlodipine 5 MG TAB PO SCH (08:56)
[2021-03-28] MEDS: Clopidogrel Bisulfate 75 MG TAB PO SCH (08:56)
[2021-03-28] MEDS: busPIRone HCl 5 MG TAB PO SCH ×2 (08:56→16:41)
[2021-03-28] MEDS: ALPRAZolam 0.25 MG TAB PO SCH ×3 (08:56→17:13)
[2021-03-28] MEDS: predniSONE 20 MG TAB PO SCH (08:57)
[2021-03-28] MEDS: Magnesium Oxide 400 MG TAB PO SCH (08:57)
[2021-03-28] MEDS ORDERED: Apixaban 5 MG TAB PO SCH (09:00)
[2021-03-28] MEDS: Polyethylene Glycol 3350 17 GM Packet PO SCH (09:02)
[2021-03-28] MEDS: Docusate 100 MG CAP PO SCH (09:08)
[2021-03-28 09:17] LABS: Band 2 % (5-11); Lymphocytes 9 % (21-51); MDiff Complete? YES; Monocytes 14 % (0-10); Myelocyte 1 % (0-0); Neutrophil 69 % (42-75); Nucleated RBC 1 % (0); Ovalocytes SLIGHT = 2-5 cells (100X) (0-1/hpf); Platelet Morphology Comment Appears Adequate; Polychromasia SLIGHT = 2-3 cells (100X) (0-2/hpf); Reactive Lymphocytes 5 % (0-10)
[2021-03-28] MEDS ORDERED: Magnesium 2 GM/50 ML 2 GM in Premix Bag 1 BAG IVPB SCH (09:45)
[2021-03-28] MEDS ORDERED: Sodium Phosphate 15 MMOL in Sodium Chloride 0.9% 250 ML 250 ML IVPB SCH (10:00)
[2021-03-28] MEDS: traMADol HCl 50 MG TAB PO PRN (11:06)
[2021-03-28 12:10] VITALS: TEMP 97.7
[2021-03-28] MEDS ORDERED: Sodium Chloride 0.9% 500 ML IV SCH (15:15)
[2021-03-28 19:44] VITALS: BP 96/50
[2021-03-29] MEDS ORDERED: predniSONE 5 MG TAB PO SCH (09:00)
== END 2021-03-28 20:45 | DRG 481 ==
LOC: SURG B 12:12
PROVIDERS: ADMIT Surgery; ATTEND Surgery
PROC: 0QS734Z Reposition Left Upper Femur with Internal Fixation Device, Percutaneous Approach (ICD-10-PCS; principal; 2021-03-26)
DX: S72.142A Displaced intertrochanteric fracture of left femur, initial encounter for closed fracture (principal); E87.1 Hypo-osmolality and hyponatremia; I13.0 Hypertensive heart and chronic kidney disease with heart failure and stage 1 through stage 4 chronic kidney disease, or unspecified chronic kidney disease; G20 Parkinson's disease; J44.9 Chronic obstructive pulmonary disease, unspecified; I50.9 Heart failure, unspecified; I48.91 Unspecified atrial fibrillation; E78.5 Hyperlipidemia, unspecified; W19.XXXA Unspecified fall, initial encounter; E11.22 Type 2 diabetes mellitus with diabetic chronic kidney disease; Y92.231 Patient bathroom in hospital as the place of occurrence of the external cause; Z20.822 Contact with and (suspected) exposure to COVID-19; E11.65 Type 2 diabetes mellitus with hyperglycemia; N18.2 Chronic kidney disease, stage 2 (mild); Z95.5 Presence of coronary angioplasty implant and graft; Z88.0 Allergy status to penicillin; Z87.891 Personal history of nicotine dependence; I25.2 Old myocardial infarction
CPT/HCPCS: 36415; 36416; 71045; 76000; 80048; 83735; 84100; 85025; 85610; 85730; 86850; 86900; 86901; 93005; 93010; 93306; 94640; C1713; J1100; J1170; J1815; J2060; J2370; J2405; J2704; J3010; J3475; J3490; J7030; J7050; J7512; J7620; S0028

== ENCOUNTER 2021-04-02 16:04 | Inpatient (IN) | payer MEDICARE ==
[2021-04-02 16:46] LABS: #Basophils 0.1 thou/uL (0.0-0.2); #Eosinphils 0.1 thou/uL (0.0-0.7); #Lymphocytes 0.9 thou/uL (1.20-3.40); #Monocytes 1.2 thou/uL (0.11-0.59); %Basophils 0.6 % (0.0-1.0); %Eosinophils 0.9 % (0.0-10.0); %Lymphocytes 8.4 % (21.0-51.0); %Monocytes 11.5 % (0.0-10.0); %Neutrophils 78.6 % (42.0-75.0); Hemoglobin 10.4 g/dL (14.0-18.0); Mean Corpuscular HGB CONC 33.5 g/dL (32.0-36.0); Mean Corpuscular Hemoglobin 32.5 pg (27.0-31.0); Mean Corpuscular Volume 96.8 fL (78.0-98.0); Mean Platelet Volume 6.6 fL (7.4-10.4); Platelet Count 393 thou/uL (130-400); RBC Distribution Width 15.8 % (11.5-14.5); Red Blood Cell (RBC) Count 3.19 mill/uL (4.70-6.10); White Blood Cell (WBC) Count 10.2 thou/uL (4.8-10.8)
[2021-04-02 16:53] LABS: ALT (SGPT) 12 U/L (8-55); AST (SGOT) 13 U/L (5-34); Albumin 2.9 g/dL (3.4-4.8); Alkaline Phosphatase 71 U/L (40-110); Anion Gap 12 mmol/L (10-20); BUN (Urea Nitrogen) 18 mg/dL (8.4-25.7); Bilirubin, Total 0.6 mg/dL (0.2-1.2); Calc. Creatinine Clearance 0 mL/min (70-130); Calcium 8.4 mg/dL (7.8-10.44); Carbon Dioxide 28 mmol/L (23-31); Chloride 96 mmol/L (98-107); Globulin 2.1 g/dL (2.4-3.5); Glucose 183 mg/dL (83-110); Potassium 4.7 mmol/L (3.5-5.1); Sodium 131 mmol/L (136-145)
[2021-04-02] MEDS ORDERED: cefTRIAXone\\ROCEPHIN 2 GM VIAL ONE (17:32)
[2021-04-02] MEDS ORDERED: Azithromycin 250 MG TAB ONE (18:16)
[2021-04-02 19:18] LABS: SARS-CoV-2 NAA Rapid Test Not Detected (NotDetected)
[2021-04-02] MEDS: Sodium Chloride 0.9% 1,000 ML IV SCH (20:27)
[2021-04-02] MEDS ORDERED: Acetaminophen 325 MG TAB PO PRN (20:30)
[2021-04-02] MEDS ORDERED: VANCOMYCIN 2 GRAM/400 ML BAG 2 GM in Premix Bag 1 BAG IVPB SCH (21:00)
[2021-04-02] MEDS: methylPREDNISolone Sod Succ 40 MG VIAL IVP SCH (23:46)
[2021-04-02] MEDS: Cefepime 2 GM in Sodium Chloride 0.9% 100 ML IVPB SCH (23:46)
[2021-04-03 03:51] LABS: #Lymphocytes 0.5 thou/uL (1.20-3.40); #Monocytes 0.6 thou/uL (0.11-0.59); #Neutrophils 15.8 thou/uL (1.40-6.50); %Eosinophils 0.2 % (0.0-10.0); %Lymphocytes 2.6 % (21.0-51.0); %Monocytes 3.7 % (0.0-10.0); %Neutrophils 93.5 % (42.0-75.0); Hemoglobin 11.4 g/dL (14.0-18.0); Mean Corpuscular HGB CONC 33.9 g/dL (32.0-36.0); Mean Corpuscular Hemoglobin 32.6 pg (27.0-31.0); Mean Corpuscular Volume 96.2 fL (78.0-98.0); Mean Platelet Volume 6.7 fL (7.4-10.4); Platelet Count 417 thou/uL (130-400); RBC Distribution Width 15.2 % (11.5-14.5); Red Blood Cell (RBC) Count 3.49 mill/uL (4.70-6.10); White Blood Cell (WBC) Count 16.9 thou/uL (4.8-10.8)
[2021-04-03 04:00] LABS: Anion Gap 14 mmol/L (10-20); BUN (Urea Nitrogen) 18 mg/dL (8.4-25.7); Calc. Creatinine Clearance 75 mL/min (70-130); Calcium 9.2 mg/dL (7.8-10.44); Carbon Dioxide 25 mmol/L (23-31); Chloride 97 mmol/L (98-107); Glucose 209 mg/dL (83-110); Potassium 4.8 mmol/L (3.5-5.1); Sodium 131 mmol/L (136-145)
[2021-04-03] MEDS: Sodium Chloride 0.9% 1,000 ML IV SCH (05:24)
[2021-04-03] MEDS: methylPREDNISolone Sod Succ 40 MG VIAL IVP SCH ×4 (05:24→23:51)
[2021-04-03] MEDS: Cefepime 2 GM in Sodium Chloride 0.9% 100 ML IVPB SCH ×2 (09:35→23:02)
[2021-04-03] MEDS ORDERED: Dextrose 5% in Water 1,000 ML IV PRN (09:51)
[2021-04-03] MEDS ORDERED: Dextrose 50% Abboject 50 ML SYRINGE SLOW IVP PRN (09:51)
[2021-04-03] MEDS: Budesonide 0.5 MG/2 ML NEB NEB SCH (18:27)
[2021-04-03] MEDS: Arformoterol 15 MCG/2 ML NEB NEB SCH (18:27)
[2021-04-03] MEDS ORDERED: Vancomycin 1.5 GRAM/300 ML BAG 1.5 GM in Premix Bag 1 BAG IVPB SCH (21:00)
[2021-04-03] MEDS: HumaLOG 300 UNITS/3 ML VIAL SC PRN (21:06)
[2021-04-03] MEDS ORDERED: busPIRone HCl 10 MG TAB PO SCH (22:00)
[2021-04-04] MEDS: methylPREDNISolone Sod Succ 40 MG VIAL IVP SCH ×3 (06:26→18:58)
[2021-04-04] MEDS: HumaLOG 300 UNITS/3 ML VIAL SC PRN ×2 (06:50→17:10)
[2021-04-04] MEDS: Arformoterol 15 MCG/2 ML NEB NEB SCH ×2 (08:42→19:58)
[2021-04-04] MEDS: Budesonide 0.5 MG/2 ML NEB NEB SCH ×2 (08:43→19:59)
[2021-04-04] MEDS ORDERED: Benzonatate 100 MG CAP PO PRN (09:07)
[2021-04-04] MEDS ORDERED: traMADol HCl 50 MG TAB PO PRN (09:07)
[2021-04-04 09:26] LABS: #Lymphocytes 0.7 thou/uL (1.20-3.40); #Monocytes 1.1 thou/uL (0.11-0.59); #Neutrophils 15.1 thou/uL (1.40-6.50); %Eosinophils 0.2 % (0.0-10.0); %Lymphocytes 4.4 % (21.0-51.0); %Monocytes 6.7 % (0.0-10.0); %Neutrophils 88.8 % (42.0-75.0); Hemoglobin 10.8 g/dL (14.0-18.0); Mean Corpuscular HGB CONC 32.2 g/dL (32.0-36.0); Mean Corpuscular Hemoglobin 31.6 pg (27.0-31.0); Mean Corpuscular Volume 97.9 fL (78.0-98.0); Mean Platelet Volume 6.9 fL (7.4-10.4); Platelet Count 433 thou/uL (130-400); RBC Distribution Width 16.2 % (11.5-14.5); Red Blood Cell (RBC) Count 3.42 mill/uL (4.70-6.10)
[2021-04-04 09:47] LABS: Anion Gap 14 mmol/L (10-20); BUN (Urea Nitrogen) 16 mg/dL (8.4-25.7); Calc. Creatinine Clearance 78 mL/min (70-130); Calcium 9.2 mg/dL (7.8-10.44); Carbon Dioxide 26 mmol/L (23-31); Chloride 98 mmol/L (98-107); Glucose 245 mg/dL (83-110); Potassium 4.4 mmol/L (3.5-5.1); Sodium 134 mmol/L (136-145)
[2021-04-04] MEDS: busPIRone HCl 10 MG TAB PO SCH ×3 (10:12→21:54)
[2021-04-04] MEDS: Clopidogrel Bisulfate 75 MG TAB PO SCH (10:13)
[2021-04-04] MEDS: Apixaban 5 MG TAB PO SCH ×2 (10:13→21:53)
[2021-04-04] MEDS: Sotalol HCl 80 MG TAB PO SCH ×2 (10:13→21:51)
[2021-04-04] MEDS: Cefepime 2 GM in Sodium Chloride 0.9% 100 ML IVPB SCH ×2 (10:14→19:42)
[2021-04-04] MEDS: Acetaminophen 500 MG TAB PO SCH ×2 (12:34→18:57)
[2021-04-04] MEDS: ALPRAZolam 0.25 MG TAB PO SCH ×3 (12:34→21:51)
[2021-04-04] MEDS ORDERED: Cefepime 2 GM in Sodium Chloride 0.9% 100 ML IVPB SCH (18:00)
[2021-04-04 20:36] LABS: Vancomycin, Trough 10.3 ug/mL
[2021-04-04] MEDS: Vancomycin 1 GM in Premix Bag 1 BAG IVPB SCH (21:41)
[2021-04-04] MEDS: Amlodipine 5 MG TAB PO SCH (21:53)
[2021-04-04] MEDS: Ezetimibe 10 MG TAB PO SCH (21:53)
[2021-04-04] MEDS: Atorvastatin Calcium 20 MG TAB PO SCH (21:54)
[2021-04-05] MEDS: Acetaminophen 500 MG TAB PO SCH ×4 (00:11→17:48)
[2021-04-05] MEDS: methylPREDNISolone Sod Succ 40 MG VIAL IVP SCH ×5 (00:12→23:13)
[2021-04-05] MEDS: Cefepime 2 GM in Sodium Chloride 0.9% 100 ML IVPB SCH ×2 (03:38→12:39)
[2021-04-05] MEDS: Budesonide 0.5 MG/2 ML NEB NEB SCH ×2 (06:35→19:05)
[2021-04-05] MEDS: Arformoterol 15 MCG/2 ML NEB NEB SCH ×2 (06:35→19:08)
[2021-04-05 06:46] LABS: #Lymphocytes 0.6 thou/uL (1.20-3.40); #Neutrophils 9.5 thou/uL (1.40-6.50); %Eosinophils 0.2 % (0.0-10.0); %Lymphocytes 5.3 % (21.0-51.0); %Monocytes 8.8 % (0.0-10.0); %Neutrophils 85.7 % (42.0-75.0); Hemoglobin 9.9 g/dL (14.0-18.0); Mean Corpuscular HGB CONC 33.6 g/dL (32.0-36.0); Mean Corpuscular Hemoglobin 32.5 pg (27.0-31.0); Mean Corpuscular Volume 96.7 fL (78.0-98.0); Mean Platelet Volume 6.7 fL (7.4-10.4); Platelet Count 375 thou/uL (130-400); RBC Distribution Width 15.7 % (11.5-14.5); Red Blood Cell (RBC) Count 3.04 mill/uL (4.70-6.10); White Blood Cell (WBC) Count 11.1 thou/uL (4.8-10.8)
[2021-04-05] MEDS: HumaLOG 300 UNITS/3 ML VIAL SC PRN ×3 (06:56→17:49)
[2021-04-05 07:06] LABS: Anion Gap 10 mmol/L (10-20); BUN (Urea Nitrogen) 23 mg/dL (8.4-25.7); Calc. Creatinine Clearance 82 mL/min (70-130); Calcium 8.5 mg/dL (7.8-10.44); Carbon Dioxide 27 mmol/L (23-31); Chloride 99 mmol/L (98-107); Glucose 261 mg/dL (83-110); Potassium 4.2 mmol/L (3.5-5.1); Sodium 132 mmol/L (136-145)
[2021-04-05 07:19] VITALS: BMI 24.0
[2021-04-05] MEDS: Vancomycin 1 GM in Premix Bag 1 BAG IVPB SCH (10:11)
[2021-04-05] MEDS: Docusate 100 MG CAP PO SCH (10:18)
[2021-04-05] MEDS: Apixaban 5 MG TAB PO SCH ×2 (10:19→20:30)
[2021-04-05] MEDS: ALPRAZolam 0.25 MG TAB PO SCH ×4 (10:19→20:28)
[2021-04-05] MEDS: Clopidogrel Bisulfate 75 MG TAB PO SCH (10:19)
[2021-04-05] MEDS: busPIRone HCl 10 MG TAB PO SCH ×4 (10:20→22:50)
[2021-04-05] MEDS: Amlodipine 5 MG TAB PO SCH ×2 (10:20→20:30)
[2021-04-05] MEDS: Sotalol HCl 80 MG TAB PO SCH ×2 (10:24→20:28)
[2021-04-05] MEDS: Lantus 1000 UNITS/10 ML VIAL SC SCH (10:36)
[2021-04-05] MEDS: GUAIFENESIN SF SOLN 200 MG/10 ML UDCUP PO PRN (17:48)
[2021-04-05] MEDS: Ezetimibe 10 MG TAB PO SCH (20:27)
[2021-04-05] MEDS: Atorvastatin Calcium 20 MG TAB PO SCH (20:30)
[2021-04-06] MEDS: Acetaminophen 500 MG TAB PO SCH ×4 (00:32→18:04)
[2021-04-06] MEDS: methylPREDNISolone Sod Succ 40 MG VIAL IVP SCH ×2 (05:30→12:04)
[2021-04-06] MEDS: GUAIFENESIN SF SOLN 200 MG/10 ML UDCUP PO PRN ×2 (05:31→12:03)
[2021-04-06] MEDS: HumaLOG 300 UNITS/3 ML VIAL SC PRN ×4 (06:23→20:34)
[2021-04-06] MEDS: Arformoterol 15 MCG/2 ML NEB NEB SCH ×2 (06:41→19:46)
[2021-04-06] MEDS: Budesonide 0.5 MG/2 ML NEB NEB SCH ×2 (06:42→19:46)
[2021-04-06 08:30] LABS: Vancomycin, Trough 12.3 ug/mL
[2021-04-06] MEDS: ALPRAZolam 0.25 MG TAB PO SCH ×4 (08:40→20:29)
[2021-04-06] MEDS: Amlodipine 5 MG TAB PO SCH ×2 (08:40→20:30)
[2021-04-06] MEDS: Sotalol HCl 80 MG TAB PO SCH ×2 (08:41→20:33)
[2021-04-06] MEDS: busPIRone HCl 10 MG TAB PO SCH ×2 (08:41→20:32)
[2021-04-06] MEDS: Docusate 100 MG CAP PO SCH (08:42)
[2021-04-06] MEDS: Lantus 1000 UNITS/10 ML VIAL SC SCH (08:42)
[2021-04-06] MEDS: Clopidogrel Bisulfate 75 MG TAB PO SCH (08:42)
[2021-04-06] MEDS: Apixaban 5 MG TAB PO SCH ×2 (08:56→20:31)
[2021-04-06] MEDS: Cefepime 2 GM in Sodium Chloride 0.9% 100 ML IVPB SCH (18:02)
[2021-04-06] MEDS: Atorvastatin Calcium 20 MG TAB PO SCH (20:31)
[2021-04-06] MEDS: Ezetimibe 10 MG TAB PO SCH (20:33)
[2021-04-07] MEDS: Acetaminophen 500 MG TAB PO SCH ×4 (00:58→17:14)
[2021-04-07] MEDS: Cefepime 2 GM in Sodium Chloride 0.9% 100 ML IVPB SCH ×2 (03:47→17:13)
[2021-04-07] MEDS: HumaLOG 300 UNITS/3 ML VIAL SC PRN ×3 (05:46→17:14)
[2021-04-07] MEDS: Arformoterol 15 MCG/2 ML NEB NEB SCH ×2 (06:41→18:43)
[2021-04-07] MEDS: Budesonide 0.5 MG/2 ML NEB NEB SCH ×2 (06:41→18:44)
[2021-04-07] MEDS: Lantus 1000 UNITS/10 ML VIAL SC SCH (08:24)
[2021-04-07] MEDS: Sotalol HCl 80 MG TAB PO SCH ×2 (08:25→20:17)
[2021-04-07] MEDS: ALPRAZolam 0.25 MG TAB PO SCH ×4 (08:26→20:17)
[2021-04-07] MEDS: busPIRone HCl 10 MG TAB PO SCH ×2 (08:26→20:18)
[2021-04-07] MEDS: Docusate 100 MG CAP PO SCH (08:27)
[2021-04-07] MEDS: predniSONE 20 MG TAB PO SCH (08:27)
[2021-04-07] MEDS: Apixaban 5 MG TAB PO SCH ×2 (08:27→20:20)
[2021-04-07] MEDS: Clopidogrel Bisulfate 75 MG TAB PO SCH (08:27)
[2021-04-07] MEDS: GUAIFENESIN SF SOLN 200 MG/10 ML UDCUP PO PRN ×3 (08:28→19:40)
[2021-04-07] MEDS: Amlodipine 5 MG TAB PO SCH ×2 (08:28→20:20)
[2021-04-07] MEDS: Atorvastatin Calcium 20 MG TAB PO SCH (20:20)
[2021-04-07] MEDS: Ezetimibe 10 MG TAB PO SCH (20:20)
[2021-04-08] MEDS: Acetaminophen 500 MG TAB PO SCH ×5 (01:04→23:10)
[2021-04-08] MEDS: Cefepime 2 GM in Sodium Chloride 0.9% 100 ML IVPB SCH ×2 (04:20→15:23)
[2021-04-08] MEDS: GUAIFENESIN SF SOLN 200 MG/10 ML UDCUP PO PRN ×2 (04:44→15:30)
[2021-04-08 06:00] LABS: Anion Gap 6 mmol/L (10-20); BUN (Urea Nitrogen) 25 mg/dL (8.4-25.7); Calc. Creatinine Clearance 93 mL/min (70-130); Calcium 8.4 mg/dL (7.8-10.44); Carbon Dioxide 34 mmol/L (23-31); Chloride 99 mmol/L (98-107); Glucose 164 mg/dL (83-110); Potassium 4.2 mmol/L (3.5-5.1); Sodium 135 mmol/L (136-145)
[2021-04-08] MEDS: Arformoterol 15 MCG/2 ML NEB NEB SCH ×2 (07:39→19:45)
[2021-04-08] MEDS: Budesonide 0.5 MG/2 ML NEB NEB SCH ×2 (07:41→19:47)
[2021-04-08] MEDS: Docusate 100 MG CAP PO SCH (08:16)
[2021-04-08] MEDS: Sotalol HCl 80 MG TAB PO SCH ×2 (08:16→20:40)
[2021-04-08] MEDS: ALPRAZolam 0.25 MG TAB PO SCH ×4 (08:17→20:37)
[2021-04-08] MEDS: predniSONE 20 MG TAB PO SCH (08:17)
[2021-04-08] MEDS: Apixaban 5 MG TAB PO SCH ×2 (08:17→20:38)
[2021-04-08] MEDS: Amlodipine 5 MG TAB PO SCH ×2 (08:17→20:38)
[2021-04-08] MEDS: busPIRone HCl 10 MG TAB PO SCH ×2 (08:17→20:38)
[2021-04-08] MEDS: Clopidogrel Bisulfate 75 MG TAB PO SCH (08:17)
[2021-04-08] MEDS: Lantus 1000 UNITS/10 ML VIAL SC SCH (08:18)
[2021-04-08] MEDS: HumaLOG 300 UNITS/3 ML VIAL SC PRN ×3 (12:13→23:09)
[2021-04-08] MEDS: Atorvastatin Calcium 20 MG TAB PO SCH (20:38)
[2021-04-08] MEDS: Ezetimibe 10 MG TAB PO SCH (20:40)
[2021-04-09] MEDS: GUAIFENESIN SF SOLN 200 MG/10 ML UDCUP PO PRN (02:03)
[2021-04-09] MEDS: Cefepime 2 GM in Sodium Chloride 0.9% 100 ML IVPB SCH ×2 (03:26→15:31)
[2021-04-09] MEDS: Acetaminophen 500 MG TAB PO SCH ×2 (05:22→12:03)
[2021-04-09] MEDS: Arformoterol 15 MCG/2 ML NEB NEB SCH (07:45)
[2021-04-09] MEDS: Budesonide 0.5 MG/2 ML NEB NEB SCH (07:46)
[2021-04-09] MEDS: busPIRone HCl 10 MG TAB PO SCH (09:17)
[2021-04-09] MEDS: Sotalol HCl 80 MG TAB PO SCH (09:18)
[2021-04-09] MEDS: Apixaban 5 MG TAB PO SCH (09:18)
[2021-04-09] MEDS: Amlodipine 5 MG TAB PO SCH (09:18)
[2021-04-09] MEDS: Clopidogrel Bisulfate 75 MG TAB PO SCH (09:18)
[2021-04-09] MEDS: predniSONE 20 MG TAB PO SCH (09:18)
[2021-04-09] MEDS: ALPRAZolam 0.25 MG TAB PO SCH ×3 (09:19→16:24)
[2021-04-09] MEDS: Docusate 100 MG CAP PO SCH (09:19)
[2021-04-09] MEDS: Lantus 1000 UNITS/10 ML VIAL SC SCH (09:19)
[2021-04-09 16:36] VITALS: BP 110/57; TEMP 97.7
== END 2021-04-09 16:45 | DRG 177 ==
LOC: ERS 16:04 → IMCU/EMU 18:03 → SURG B 04-04 18:20
PROVIDERS: ADMIT Internal Medicine; ATTEND Internal Medicine
PROC: 5A09357 Assistance with Respiratory Ventilation, Less than 24 Consecutive Hours, Continuous Positive Airway Pressure (ICD-10-PCS; principal; 2021-04-02)
DX: J69.0 Pneumonitis due to inhalation of food and vomit (principal); Z66 Do not resuscitate; Z20.822 Contact with and (suspected) exposure to COVID-19; J96.21 Acute and chronic respiratory failure with hypoxia; J96.22 Acute and chronic respiratory failure with hypercapnia; J44.1 Chronic obstructive pulmonary disease with (acute) exacerbation; E87.1 Hypo-osmolality and hyponatremia; E78.5 Hyperlipidemia, unspecified; E78.00 Pure hypercholesterolemia, unspecified; I11.0 Hypertensive heart disease with heart failure; I50.9 Heart failure, unspecified; I48.91 Unspecified atrial fibrillation; Z96.642 Presence of left artificial hip joint; G20 Parkinson's disease; R13.12 Dysphagia, oropharyngeal phase; M45.9 Ankylosing spondylitis of unspecified sites in spine; I25.10 Atherosclerotic heart disease of native coronary artery without angina pectoris; E11.65 Type 2 diabetes mellitus with hyperglycemia; Y95 Nosocomial condition; W19.XXXD Unspecified fall, subsequent encounter; S72.002D Fracture of unspecified part of neck of left femur, subsequent encounter for closed fracture with routine healing; Z86.74 Personal history of sudden cardiac arrest; I25.2 Old myocardial infarction; Z87.01 Personal history of pneumonia (recurrent); Z95.5 Presence of coronary angioplasty implant and graft; Z87.891 Personal history of nicotine dependence; Z88.0 Allergy status to penicillin; Z79.899 Other long term (current) drug therapy; Z79.01 Long term (current) use of anticoagulants; Z79.02 Long term (current) use of antithrombotics/antiplatelets; Z79.51 Long term (current) use of inhaled steroids; Z79.52 Long term (current) use of systemic steroids; Z99.81 Dependence on supplemental oxygen
CPT/HCPCS: 36415; 36416; 71045; 80048; 80202; 83605; 83880; 83930; 83935; 84484; 85025; 87040; 93005; 93970; 94640; 94660; 96365; 96366; 96367; J0692; J0696; J1815; J1956; J2920; J3370; J3490; J7050; J7512; J7620; J7626; U0002